=== PATIENT | male | born 1985 | race Caucasian/White ===

== ENCOUNTER 2018-04-15 20:49 | Emergency (ER) | payer OTHER ==
[~2018-04-15] VITALS: Ht 170.2 cm; Wt 77.1 kg
[~2018-04-15 20:49] MED LIST: ALBU90OI INH; AMOCLA875 PO; Albuterol2.5 MG/0.5 INH; BENZ1 PO; BENZ100A PO; BUPR75 PO; BUSP10 PO; BUSPAR; COGENTIN; CYCL10 PO; DIAZ5 PO; DIPH50 PO; DOXY100 PO; ESCI10 PO; ESCI20 PO; ESCI5 PO; HALDOL; HYDACE5 PO; IBUP600 PO; IBUP800 PO; INVEGA IM; LITH300C PO; LITHIUM; MONT10T PO; Monodox100 MG PO; NAPR500 PO; NAPR550 PO; Naprosyn500 MG PO; OMEP40CA12 PO; ONDA4ODT MM; PALI6TA PO; PRED10 PO; PROM25 PO; PSEU120ER PO; Prednisone20 MG PO; RXHYDACE PO; RXNAPNA550 PO; RXOXYACE PO; RXTRAM50 PO; STRATTERA; SULTRIDS PO; TRAM50 PO; TRAZ50 PO; ZOLP5 PO
[2018-04-15] MEDS ORDERED: IBUP600 PO (22:25)
[2018-04-15] MEDS ORDERED: Norco 5-325 Ta1 EACH PO (22:25)
== END 2018-04-15 22:30 | disposition home or self-care (01) ==
LOC: ER 20:49
DX: K08.89 Other specified disorders of teeth and supporting structures (principal); F41.0 Panic disorder [episodic paroxysmal anxiety]; F31.9 Bipolar disorder, unspecified; J44.9 Chronic obstructive pulmonary disease, unspecified; F17.210 Nicotine dependence, cigarettes, uncomplicated; Z79.899 Other long term (current) drug therapy
CPT/HCPCS: 99282